=== PATIENT | female | born 1945 | race Caucasian/White ===

== ENCOUNTER 2023-09-29 09:06 | Outpatient (CLI) | payer MEDICARE | END 2023-09-29 09:07 | disposition home or self-care (01) | LOC: CSHCT 09:06 | PROVIDERS: ATTEND Otolaryngology Plastic Surgery within the Head & Neck | DX: H71.22 Cholesteatoma of mastoid, left ear (principal); H83.8X3 Other specified diseases of inner ear, bilateral | CPT/HCPCS: 70480 ==